=== PATIENT | male | born 1950 | race Caucasian/White ===

== ENCOUNTER 2020-03-16 15:12 | Outpatient (CLI) | payer MEDICARE, SELFPAY ==
--- NOTE | 2020-03-16 15:31 | XR_ITS ---
WS: [id number] LATERAL LUMBAR SPINE: 3 view. Lateral radiographs are performed in upright neutral, flexion and extension to the patient's toleranc e. HISTORY: Spondylolisthesis. COMPARISON: None available. L4 and L5 anterolisthesis. L4 anterolisthesis by 8 mm does not change significantly with flexion or extension. L5 anterolisthesis by 9 mm. Probably does not change significantly with flexion and extension. The al ignment with respect to the sacrum is poorly visualized. Severe degenerative disc space narrowing at L5-S1. There is fusion hardware posteriorly in the lower lumbar spine and upper sacrum. Advanced dege nerative changes throughout the lumbar spine. XR/XR lumbar spine f/e only [id number] IMPRESSION: 1. Grade 1 anterolisthesis of L4 and L5 without instability appreciated. 2. Advanced degenerative disc disease at L5-S1.
== END 2020-03-16 15:13 | disposition home or self-care (01) ==
LOC: RADWPI 15:17
PROVIDERS: Visit Provider Nurse Practitioner
DX: M43.17 Spondylolisthesis, lumbosacral region (principal); M96.1 Postlaminectomy syndrome, not elsewhere classified; M51.37 Other intervertebral disc degeneration, lumbosacral region
CPT/HCPCS: 72120